=== PATIENT | female | born 1970 | race Caucasian/White ===

== ENCOUNTER 2017-12-27 17:30 | Observation (INO) | payer OTHER ==
[2017-12-27] MEDS ORDERED: levETIRAcetam IV 1,000 MG in SALINE 1 100ML.BAG IVPB STA (18:10)
[2017-12-27] MEDS ORDERED: SODIUM CHLORIDE 0.9% 1,000 ML IV STA ×2 (18:10)
[2017-12-27] MEDS ORDERED: KETOROLAC 30 MG/ML 1 ML VIAL IVP STA (18:11)
[2017-12-27 18:56] LABS: Basophils % (A) 0 %; Eosinophils # (A) 0.1 k/uL (0-0.7); Eosinophils % (A) 2 %; HCT 38.6 % (34.0-46.0); HGB 12.6 gm/dL (11.4-16.0); Lymphocytes # (A) 2.3 k/uL (1.0-4.8); Lymphocytes % (A) 36 %; MCH 29.9 pg (25.0-35.0); MCHC 32.8 g/dL (31.0-37.0); MCV 91.2 fL (80.0-100.0); Mean Platelet Volume 9.6; Monocytes # (A) 0.3 k/uL (0-1.0); Monocytes % (A) 5 %; Neutrophils # (A) 3.6 k/uL (1.3-7.7); Neutrophils % (A) 55 %; Platelet Count 208 k/uL (150-450); RBC 4.23 m/uL (3.80-5.40); RDW 14.2 % (11.5-15.5); WBC 6.5 k/uL (3.8-10.6)
[2017-12-27 19:04] LABS: ALT 17 U/L (9-52); AST 23 U/L (14-36); Albumin 3.7 g/dL (3.5-5.0); Alkaline Phosphatase 61 U/L (38-126); Anion Gap 11 mmol/L; Blood Urea Nitrogen 9 mg/dL (7-17); Carbon Dioxide 22 mmol/L (22-30); Chloride 109 mmol/L (98-107); Creatine Kinase 56 U/L (30-135); Glucose 75 mg/dL (74-99); Sodium 142 mmol/L (137-145); Total Bilirubin 0.5 mg/dL (0.2-1.3); Total Protein 6.4 g/dL (6.3-8.2)
--- NOTE | 2017-12-27 19:23 | CT ---
EXAMINATION TYPE: CT brain wo con DATE OF EXAM: 12/27/2017 COMPARISON: NONE HISTORY: Seizure. CT DLP: 873.2 mGycm. Automated Exposure Control for Dose Reduction was Utilized. TECHNIQUE: CT scan of the head is performed without contrast. FINDINGS: Ventricles have normal size. There is no mass effect nor midline shift. There is no sign of intracranial hemorrhage. The calvarium is intact. CONCLUSION: Negative CT scan of the brain.
--- NOTE | 2017-12-27 19:50 | ED ---
Seizure HPI - General Chief Complaint: Seizure Stated Complaint: Seizure Time Seen by Provider: 12/27/17 17:42 Source: patient Mode of arrival: EMS Limitations: no limitations - History of Present Illness Initial Comments: This 47-year-old white female presents with a complaint of seizures. She states that she has had multiple seizures today. She is unsure exactly how much. A family member is present and states that she has had approximately 6 seizures. They're short-lived without exact known duration. Her body apparently stiffens up and she is unconscious during these. She does have a history of seizures for the last 12 or so years. She currently is on antiseizure medications and follows up with a neurologist out of [place]. She states that she has an adrenal mass and apparently is on some type of prostaglandin medication which is new for her and she states that her seizures have been worse recently. She complains of a diffuse body type pain from the stiffening up of her muscles. She does present via EMS and they gave her 10 mg of Versed IM prior to arrival with cessation of her seizures. She states that these didn't seem to make her feel more calm but she is still complaining of pain. No recent fevers or chills. No chest pain or shortness of breath. No other complaints or modifying factors. - Related Data Home Medications Medication Instructions Recorded Confirmed Acetaminophen [Tylenol Extra 500 mg PO BID PRN 12/27/17 12/27/17 Strength] Albuterol Inhaler [Ventolin Hfa 2 puff INHALATION RT-Q6H PRN 12/27/17 12/27/17 Inhaler] Cabergoline 0.5mg 0.5 mg PO Q72H 12/27/17 12/27/17 Cetirizine HCl [Zyrtec] 10 mg PO DAILY 12/27/17 12/27/17 Diazepam 10 mg PO QID 12/27/17 12/27/17 Fluticasone Nasal [place] [Flonase 1 spray EA NOSTRIL DAILY 12/27/17 12/27/17 Nasal [place]] Furosemide [Lasix] 20 mg PO DAILY PRN 12/27/17 12/27/17 Loperamide HCl [Loperamide] 2 mg PO DAILY PRN 12/27/17 12/27/17 Melatonin 3 mg PO HS PRN 12/27/17 12/27/17 Metoclopramide HCl [Reglan] 10 mg PO QID PRN 12/27/17 12/27/17 QUEtiapine FUMARATE 100 - 200 mg PO HS 12/27/17 12/27/17 diphenhydrAMINE HCL [Benadryl] 25 mg PO HS PRN 12/27/17 12/27/17 levETIRAcetam [Keppra] 1,000 mg PO BID 12/27/17 12/27/17 metFORMIN HCL [Glucophage] 500 mg PO TID 12/27/17 12/27/17 Allergies Allergy/AdvReac Type Severity Reaction Status Date / Time bee venom protein (honey bee) Allergy Anaphylaxis Verified 12/27/17 18:06 erythromycin base Allergy Anaphylaxis Verified 12/27/17 18:06 Latex, Natural Rubber Allergy Rash/Hives Verified 12/27/17 18:06 Review of Systems ROS Statement: Those systems with pertinent positive or pertinent negative responses have been documented in the HPI. ROS Other: All systems not noted in ROS Statement are negative. Past Medical History Past Medical History: Asthma, Seizure Disorder Additional Past Medical History / Comment(s): pituitary tumor History of Any Multi-Drug Resistant Organisms: None Reported Past Surgical History: Section Additional Past Surgical History / Comment(s): multiple abd surgeries Past Psychological History: Bipolar Smoking Status: Current every day smoker Past Alcohol Use History: Occasional Past Drug Use History: None Reported General Exam - General Exam Comments Initial Comments: GENERAL: The patient is well nourished and well hydrated. VITAL SIGNS: Heart rate, blood pressure, respiratory rate reviewed as recorded in nurse's notes. EYES: Pupils are round and reactive. Extraocular movements are intact. No conjunctival / lid redness or swelling. ENT: No external evidence of injury, swelling, or ecchymosis. Airway is patent. Throat is clear. Patient has 3 different colors of hair. NECK: Nontender. No swelling or evidence of injury. No subcutaneous emphysema. Trachea is midline. No thyroid mass. HEART: Regular rate and rhythm. Good peripheral pulses. LUNGS/CHEST: Breath sounds clear and equal bilaterally. No rales, rhonchi, or wheezes. No ecchymosis, subcutaneous emphysema, or tenderness. ABDOMEN: Abdomen soft without tenderness. No palpable masses or organomegaly. No peritoneal signs. No abdominal wall swelling or ecchymosis. EXTREMITIES: There is mild diffuse tenderness throughout extremities. Normal muscle tone and function. No thoracolumbar tenderness. NEUROLOGIC: Sensation is grossly intact. Cranial nerve exam reveals face is symmetrical, tongue is midline, speech is clear. SKIN: No abrasions or ecchymosis is noted. No induration or masses noted. PSYCHIATRIC: Alert and oriented. Appropriate behavior and judgment. Limitations: no limitations Course Vital Signs 12/27/17 17:51 Temperature 96.8 F L Pulse Rate 77 Respiratory 18 Rate Blood Pressure 120/89 O2 Sat by Pulse 100 Oximetry Medical Decision Making - Medical Decision Making The patient was seen and examined. All diagnostics were reviewed. The computed tomography scan of the brain did not show any acute processes. The patient also had a laboratory analysis which essentially all came back within normal limits. The urinalysis is pending. She did receive some Toradol intravenously for pain. The laboratory did not show any acute gross abnormalities. The computed tomography scan of the brain was normal. It appears as though the patient has had multiple seizures this requiring admission to the hospital. The case is discussed with internal medicine and they're agreeable to admission as well. - Lab Data Result diagrams: 12/27/17 18:45 12/27/17 18:45 Lab Results 12/27/17 12/27/17 Range/Units 18:45 18:45 WBC 6.5 (3.8-10.6) k/uL RBC 4.23 (3.80-5.40) m/uL Hgb 12.6 (11.4-16.0) gm/dL Hct 38.6 (34.0-46.0) % MCV 91.2 (80.0-100.0) fL MCH 29.9 (25.0-35.0) pg MCHC 32.8 (31.0-37.0) g/dL RDW 14.2 (11.5-15.5) % Plt Count 208 (150-450) k/uL Neutrophils % 55 % Lymphocytes % 36 % Monocytes % 5 % Eosinophils % 2 % Basophils % 0 % Neutrophils # 3.6 (1.3-7.7) k/uL Lymphocytes # 2.3 (1.0-4.8) k/uL Monocytes # 0.3 (0-1.0) k/uL Eosinophils # 0.1 (0-0.7) k/uL Basophils # 0.0 (0-0.2) k/uL Sodium 142 (137-145) mmol/L Potassium 4.0 (3.5-5.1) mmol/L Chloride 109 H (98-107) mmol/L Carbon Dioxide 22 (22-30) mmol/L Anion Gap 11 mmol/L BUN 9 (7-17) mg/dL Creatinine 0.66 (0.52-1.04) mg/dL Est GFR (CKD-EPI)AfAm >90 (>60 ml/min/1.73 sqM) Est GFR (CKD-EPI)NonAf >90 (>60 ml/min/1.73 sqM) Glucose 75 (74-99) mg/dL Calcium 9.0 (8.4-10.2) mg/dL Total Bilirubin 0.5 (0.2-1.3) mg/dL AST 23 (14-36) U/L ALT 17 (9-52) U/L Alkaline Phosphatase 61 (38-126) U/L Creatine Kinase 56 (30-135) U/L Total Protein 6.4 (6.3-8.2) g/dL Albumin 3.7 (3.5-5.0) g/dL Disposition Clinical Impression: Recurrent seizures, Myalgia, Pituitary tumor, Cephalgia Disposition: ADMITTED IP TO THIS [facility] Condition: Fair Time of Disposition: 21:30 Decision Date: 12/27/17 Decision Time: 21:30
[2017-12-27] MEDS ORDERED: ONDANSETRON 4 MG/2 ML VIAL IVP PRN (21:31)
[2017-12-27] MEDS ORDERED: NALOXONE 0.4 MG/ML 1 ML VIAL IV PRN (21:31)
[2017-12-27] MEDS ORDERED: ALBUTEROL NEBULIZED 2.5 MG/3 ML INHALATION PRN (21:34)
[2017-12-27] MEDS ORDERED: LOPERAMIDE 2 MG CAP PO PRN (21:34)
[2017-12-27] MEDS ORDERED: MELATONIN 3 MG TABLET PO PRN (21:34)
[2017-12-27] MEDS ORDERED: ACETAMINOPHEN TAB 500 MG TAB PO PRN (21:34)
[2017-12-27] MEDS ORDERED: diphenhydrAMINE 25 MG CAP PO PRN (21:34)
[2017-12-27] MEDS ORDERED: FUROSEMIDE 20 MG TAB PO PRN (21:34)
[2017-12-27] MEDS ORDERED: LORazepam 2 MG/ML INJ IV PRN (22:25)
--- NOTE | 2017-12-27 22:39 | P.HPIM ---
History of Present Illness 47-year-old female with history of epilepsy, recent diagnosis of pituitary microadenoma with hyperprolactinemia. Patient presented to the hospital with status epilepticus. She described having 6 attacks at least of seizures back to back with loss of consciousness. Described attack as stiffness of her whole body. Denies any tongue biting or loss of bowel or bladder control. The attacks were witnessed by family member who described the event. Patient reports that her seizures has not been under very good control and she usually has breakthrough seizures couple times a month but since the diagnosis pituitary microadenoma few months ago and starting on Cabergoline, her seizures got way out of control. Denies any associated headaches nausea or vomiting at this time. But does report some blurry vision which has been going on for a few months since the diagnosis of the pituitary microadenoma. She reports no recent changes in her antiepileptic drugs. Her neurologist is based [place] and she has some workup done at [facility] including an MRI of the brain So patient family end up calling EMS who gave her 10 mg of Versed and Route, in the ED patient had computed tomography scan of the head which was negative, was loaded with Keppra and admitted for further care. Review of Systems Constitutional: Patient denies fever, denies chills, denies night sweating, denies significant weight changes Eyes: Patient reports chronic blurred vision, denies eye pain ENT: Patient denies ear pain, denies rhinorrhea, denies sore throat Cardiovascular: Patient denies chest pain, denies exertional dyspnea, denies peripheral leg edema, denies orthopnea, denies paroxysmal nocturnal dyspnea Respiratory:Patient denies cough, denies wheezing, denies shortness of breath Gastrointestinal: Patient denies diarrhea, denies constipation, denies nausea , denies vomiting, denies abdominal pain Genitourinary: Patient denies dysuria, denies hematuria, denies changes in urinary habits, denies genital lesions Musculoskeletal: Patient denies muscle pain, reports left knee pain Psychiatric: Patient denies changes in mood or memory, denies suicidal ideation, reports anxiety Endocrine: Patient denies heat intolerance, denies cold intolerance, denies excessive thirst, denies polyuria Neurological: Patient denies focal neurologic deficits, denies weakness, denies numbness, denies tingling Hem/Lymphatic: Patient denies bleeding tendency, denies bruising, denies swollen lymph glands Allergic/Immun: Patient denies recent allergic reactions Skin: Patient denies rashes, denies pruritis, denies ulcers Past Medical History Past Medical History: Asthma, Seizure Disorder Additional Past Medical History / Comment(s): pituitary tumor History of Any Multi-Drug Resistant Organisms: None Reported Past Surgical History: Section Additional Past Surgical History / Comment(s): multiple abd surgeries Past Psychological History: Bipolar Smoking Status: Current every day smoker Past Alcohol Use History: Occasional Past Drug Use History: None Reported - Past Family History Father Family Medical History: Cancer Additional Family Medical History / Comment(s): thyroid, Mother Family Medical History: Congestive Heart Failure (CHF), Diabetes Mellitus Additional Family Medical History / Comment(s): epilepsy Medications and Allergies Home Medications and Allergies Comment(s): Reviewed Home Medications Medication Instructions Recorded Confirmed Type Acetaminophen [Tylenol Extra 500 mg PO BID PRN 12/27/17 12/27/17 History Strength] Albuterol Inhaler [Ventolin Hfa 2 puff INHALATION RT-Q6H PRN 12/27/17 12/27/17 History Inhaler] Cabergoline 0.5mg 0.5 mg PO Q72H 12/27/17 12/27/17 History Cetirizine HCl [Zyrtec] 10 mg PO DAILY 12/27/17 12/27/17 History Diazepam 10 mg PO QID 12/27/17 12/27/17 History Fluticasone Nasal [place] [Flonase 1 spray EA NOSTRIL DAILY 12/27/17 12/27/17 History Nasal [place]] Furosemide [Lasix] 20 mg PO DAILY PRN 12/27/17 12/27/17 History Loperamide HCl [Loperamide] 2 mg PO DAILY PRN 12/27/17 12/27/17 History Melatonin 3 mg PO HS PRN 12/27/17 12/27/17 History Metoclopramide HCl [Reglan] 10 mg PO QID PRN 12/27/17 12/27/17 History QUEtiapine FUMARATE 100 - 200 mg PO HS 12/27/17 12/27/17 History diphenhydrAMINE HCL [Benadryl] 25 mg PO HS PRN 12/27/17 12/27/17 History levETIRAcetam [Keppra] 1,000 mg PO BID 12/27/17 12/27/17 History metFORMIN HCL [Glucophage] 500 mg PO TID 12/27/17 12/27/17 History Allergies Allergy/AdvReac Type Severity Reaction Status Date / Time bee venom protein (honey bee) Allergy Anaphylaxis Verified 12/27/17 18:06 erythromycin base Allergy Anaphylaxis Verified 12/27/17 18:06 Latex, Natural Rubber Allergy Rash/Hives Verified 12/27/17 18:06 Physical Exam Vitals: Vital Signs Temp Pulse Resp BP Pulse Ox 12/27/17 22:15 97.3 F L 66 18 104/65 99 12/27/17 21:45 64 98/69 100 12/27/17 20:45 62 108/69 100 12/27/17 19:45 84 93/51 99 12/27/17 18:45 64 94/65 100 12/27/17 17:51 96.8 F L 77 18 120/89 100 Intake and Output 12/27/17 12/27/17 12/27/17 06:59 14:59 22:59 Other: Weight 74.843 kg Constitutional: No acute distress, conversant, pleasant Eyes: Anicteric sclerae, moist conjunctiva, no lid-lag Pupils equal round reactive to light ENMT: NC/AT Oropharynx clear, no erythema, exudates Neck: Supple, FROM, no masses, or JVD No carotid bruits No thyromegaly Lungs: Clear to auscultation Clear to percussion Normal respiratory effort, no accessory muscle use Cardiovascular: Heart regular in rate and rhythm, No murmurs, gallops, or rubs No peripheral edema Abdominal: Soft Nontender, no guarding, rebound or rigidity Abdomen moving with respiration Normoactive bowel sounds No hepatomegaly, No splenomegaly No palpable mass No abdominal wall hernia noted Skin: Normal temperature, tone, texture, turgor No induration No subcutaneous nodules No rash, lesions No ulcers Extremities: No digital cyanosis No clubbing Pedal pulses intact and symmetrical Radial pulses intact and symmetrical No calf tenderness Patient reports some pain in her left knee, no tenderness to palpation , there is slight swelling of the left knee compared to the right, no skin changes, there is limitation in range of motion of the left knee with limited flexion due to pain Psychiatric: Alert and oriented to person, place and time Appropriate affect fair judgment Neuro Muscles Strength 5/5 in all extremities Sensation to light touch grossly present throughout Cranial nerves II-XII grossly intact No focal sensory deficits Lymphatics: no palpable cervical or supraclavicular , or inguinal lymph nodes Results CBC & Chem 7: 12/27/17 18:45 12/27/17 18:45 Labs: Abnormal Lab Results - Last 24 Hours (Table) 12/27/17 Range/Units 18:45 Chloride 109 H (98-107) mmol/L Assessment and Plan Assessment: 47-year-old female with history of epilepsy and recent diagnosis of pituitary microadenoma with hyperprolactinemia. She presented to the hospital due to status epilepticus where she had 6 attacks of seizures associated with loss of consciousness back to back. EMS was called she received 10 mg of Versed and was brought to the hospital for further care. She denies any recent changes in her antiepileptic drugs and claims to be compliant with her medications Plan: #Status epilepticus with breakthrough seizures #History of epilepsy #Pituitary microadenoma with hyperprolactinemia #Smoking Patient counseled to quit smoking dictated replacement therapy offered #DVT prophylaxis Heparin subcu 3 times a day Patient was loaded with Keppra in the ED Cannot check Keppra level at this point Check EEG Neurology consult Obtain records from [facility] to assess for brain MRI due to recent history of pituitary microadenoma with hyperprolactinemia Check prolactin level Check morning labs Neurology consultation Check TSH, check prolactin level Surrogate decision-maker: Patient's father Gerald Kingsley CODE STATUS: Full code DVT prophylaxis: *Heparin subcu Discussed with: Patient, ER, RN Anticipated discharge: 48-[address]: Home A total of 55 minutes were spent on the care of this complex patient more than 50% of the time was spent in counseling and care coordination.
[2017-12-27] MEDS: METOCLOPRAMIDE 5 MG/ML 2 ML VIAL IVP PRN (22:47)
[2017-12-27] MEDS: DIAZEPAM 5 MG TAB PO SCH (22:54)
[2017-12-27] MEDS: HYDROcodone/APAP 5-325MG 1 EACH TAB PO PRN (23:02)
[2017-12-27 23:26] LABS: Glucose,Whole Blood 99 mg/dL (75-99)
[2017-12-27 23:37] VITALS: BMI 25.8
[2017-12-28] MEDS: metFORMIN 500 MG TAB PO SCH ×4 (00:10→17:14)
[2017-12-28 00:22] LABS: Appearance,Urine Clear (Clear); Bilirubin,Urine Negative (Negative); Blood,Urine Negative (Negative); Color,Urine Yellow; Glucose,Urine (UA) Negative (Negative); Ketones,Urine 2+ (Negative); Leukocyte Esterase,Urine Negative (Negative); Nitrite,Urine Negative (Negative); PH, Urine 7.5 (5.0-8.0); Protein,Urine Negative (Negative); Specific Gravity,Urine 1.012 (1.001-1.035)
[2017-12-28 00:34] LABS: Amphetamine Screen,Urine Not Detected (NotDetected); Barbiturate Screen,Urine Not Detected (NotDetected); Benzodiazepines Screen,Urine Detected (NotDetected); Cocaine Screen,Urine Not Detected (NotDetected); Methadone Screen, Urine Not Detected (NotDetected); Opiate Screen,Urine Not Detected (NotDetected); Oxycodone Screen, Urine Not Detected (NotDetected); Phencyclidine Screen,Urine Not Detected (NotDetected); Tricyclic Antidepressant,Urine Detected (NotDetected); Urn Cannabinoid Scrn Not Detected (NotDetected)
[2017-12-28] MEDS: HYDROcodone/APAP 5-325MG 1 EACH TAB PO PRN ×5 (03:53→21:36)
[2017-12-28] MEDS: levETIRAcetam 500 MG TAB PO SCH ×2 (08:32→20:29)
[2017-12-28] MEDS: DIAZEPAM 5 MG TAB PO SCH ×4 (08:32→21:36)
[2017-12-28] MEDS: LORATADINE 10 MG TAB PO SCH (08:37)
[2017-12-28] MEDS: FLUTICASONE 50MCG/SPRAY NASAL 16GM EA NOSTRIL SCH (08:37)
[2017-12-28 08:59] LABS: Basophils % (A) 1 %; Eosinophils # (A) 0.1 k/uL (0-0.7); Eosinophils % (A) 1 %; HCT 37.8 % (34.0-46.0); HGB 12.6 gm/dL (11.4-16.0); Lymphocytes # (A) 1.8 k/uL (1.0-4.8); Lymphocytes % (A) 41 %; MCH 30.3 pg (25.0-35.0); MCHC 33.3 g/dL (31.0-37.0); MCV 90.8 fL (80.0-100.0); Mean Platelet Volume 11.4; Monocytes # (A) 0.3 k/uL (0-1.0); Monocytes % (A) 7 %; Neutrophils # (A) 2.1 k/uL (1.3-7.7); Neutrophils % (A) 48 %; Platelet Count 174 k/uL (150-450); RBC 4.16 m/uL (3.80-5.40); WBC 4.4 k/uL (3.8-10.6)
[2017-12-28] MEDS ORDERED: PANTOPRAZOLE 40 MG/10 ML VIAL IV SCH (09:00)
[2017-12-28] MEDS ORDERED: levETIRAcetam IV 1,000 MG in SALINE 1 100ML.BAG IVPB SCH (09:00)
[2017-12-28] MEDS: ENOXAPARIN 40 MG/0.4 ML SYRINGE SQ SCH (09:20)
[2017-12-28 10:25] LABS: ALT 16 U/L (9-52); AST 20 U/L (14-36); Albumin 3.1 g/dL (3.5-5.0); Alkaline Phosphatase 46 U/L (38-126); Anion Gap 11 mmol/L; Blood Urea Nitrogen 9 mg/dL (7-17); Calcium 8.3 mg/dL (8.4-10.2); Carbon Dioxide 19 mmol/L (22-30); Chloride 112 mmol/L (98-107); Glucose 73 mg/dL (74-99); Potassium 4.2 mmol/L (3.5-5.1); Sodium 142 mmol/L (137-145); Total Bilirubin 0.5 mg/dL (0.2-1.3); Total Protein 5.6 g/dL (6.3-8.2)
--- NOTE | 2017-12-28 11:19 | P.PN ---
Subjective Progress Note Date: 12/28/17 Principal diagnosis: Seizures Patient hasn't had any more seizures since admission. No focal weakness or numbness. She was having headaches. Objective - Vital Signs Vital signs: Vital Signs Temp 96.9 F L 12/28/17 07:28 Pulse 70 12/28/17 09:03 Resp 18 12/28/17 09:03 BP 97/61 12/28/17 07:28 Pulse Ox 100 12/28/17 07:28 Intake & Output 12/27/17 12/28/17 12/28/17 18:59 06:59 18:59 Intake Total 700 Balance 700 Weight 74.843 kg 74.843 kg Intake: Intake, IV Titration 700 Amount Sodium Chloride 0.9% 1, 700 000 ml @ 100 mls/hr IV . Q10H STA Rx#:[id number] Other: Voiding Method Toilet Toilet # Voids 1 - Exam Constitutional: No acute distress, conversant, pleasant Eyes:Anicteric sclerae, moist conjunctiva, no lid-lag, PERRLA, ENMT: Oropharynx clear, no erythema, exudates Neck: Supple, FROM, no masses, or JVD, No carotid bruits, No thyromegaly Lungs: Clear to auscultation, Clear to percussion, Normal respiratory effort, no accessory muscle use Cardiovascular: Heart regular in rate and rhythm, No murmurs, gallops, or rubs, No peripheral edema Abdominal: Soft, Nontender, no guarding, rebound or rigidity, Normoactive bowel sounds, No hepatomegaly, No splenomegaly, No palpable mass Skin: Normal temperature, tone, texture, turgor, no induration, No subcutaneous nodules, No rash, lesions, No ulcers Extremities: No digital cyanosis, No clubbing, Pedal pulses intact and symmetrical, Radial pulses intact and symmetrical, No calf tenderness Psychiatric: Alert and oriented to person, place and time, appropriate affect, intact judgement Neuro: Muscles Strength 5/5 in all 4 extremities, Sensation to light touch grossly present throughout, Cranial nerves II-XII grossly intact, no focal sensory deficits - Labs CBC & Chem 7: 12/28/17 07:32 12/28/17 09:29 Labs: Abnormal Lab Results - Last 24 Hours (Table) 03/26/18 03/27/18 03/27/18 Range/Units 18:45 00:15 09:29 Chloride 109 H 112 H (98-107) mmol/L Carbon Dioxide 19 L (22-30) mmol/L Glucose 73 L (74-99) mg/dL Calcium 8.3 L (8.4-10.2) mg/dL Total Protein 5.6 L (6.3-8.2) g/dL Albumin 3.1 L (3.5-5.0) g/dL Urine Ketones 2+ H (Negative) U Tricyclic Antidepress Detected H (NotDetected) U Benzodiazepines Scrn Detected H (NotDetected) Assessment and Plan Plan: # Status epilepticus/History of epilepsy: -Continue keppra -EEG -Neuro consult -In process of obtaining records. -Labs reviewed. # Pituitary microadenoma with hyperprolactinemia Prolactin level pending Awaiting records from outside hospital. #Smoking Counseled to quit #DVT prophylaxis Heparin subcu 3 times a day
--- NOTE | 2017-12-28 16:31 | XR ---
EXAMINATION TYPE: XR knee limited LT DATE OF EXAM: 12/28/2017 CLINICAL HISTORY: pain TECHNIQUE: Two views of the left knee are obtained. COMPARISON: None. FINDINGS: There is no acute fracture/dislocation. The tri-compartment joint spaces appear within no rmal limits. The overlying soft tissue appears unremarkable. IMPRESSION: There is no acute fracture or dislocation ICD 10 NO FRACTURE, INITIAL EVALUATION
--- NOTE | 2017-12-28 18:07 | P.CNNES ---
History of Present Illness Consult date: 12/28/17 Reason for Consult: Patient admitted with seizure disorder and microadenoma. History of Present Illness: This patient is a 47-year-old right-handed white female with a known history of underlying epilepsy. Patient states she was recently seen by her neurologist in the [facility] [place], [place] and was being evaluated for recent seizure events. Patient has been treated for seizure disorder dating back several years. She states she underwent evaluation about 10 years ago with the [facility] and was diagnosed with epileptic and nonepileptic seizures. She has been on various anticonvulsants over the years but most recently was taking levetiracetam. Patient states she was recently diagnosed as having a pituitary microadenoma which was detected on MRI of the brain. She was started on specific treatment for the microadenoma which was producing hyperprolactinemia. Currently she was started on Cabergoline for specific treatment. Patient states her regular neurologist this based out of [facility] in the [facility], [place]. She states this is where she has been treated for seizures over the years. She had several breakthrough seizures and was brought into the emergency room where she was further evaluated. She was loaded with IV Keppra as she had multiple seizures at home. She mentioned she also has a history of bipolar disorder and is currently on Seroquel for treatment. She follows with a psychiatrist in the outpatient setting as well. Patient did undergo a Keppra level in the emergency room the results of which are still pending. She was treated for her seizures initially on site and was given 10 mg of Versed. When she was in the ER she was loaded with the IV Keppra. She is currently on 1000 mg by mouth twice a day. Apparently at home she was taking 500 mg in the morning and at thousand at night. We have recommended a repeat Keppra level to be done for her tomorrow. Patient is now resting very comfortably. She has had no further seizures since admission. She underwent a routine EEG today which was reviewed and is normal for age with no evidence of any epileptiform discharges. As mentioned the patient does have underlying history of pseudoseizures as well. It is unclear due to the frequency of her recent seizures whether some of these may be related to her history of pseudoseizures. She did undergo a computed tomography scan of the brain yesterday which was reported negative for any acute changes. Patient denies any focal weakness or headaches at this time. She is interested in being discharged but we would like to obtain her Keppra level prior to discharge. She should follow-up with her regular neurologist for further management of her underlying history of epilepsy. A prolactin blood level has been drawn and is pending at this time. Patient is advised of the [place] driving only states she should not be driving for. To 6 months following her last seizure event. She is aware of this restriction due to her long history of epilepsy. Neurology is now been consulted for further evaluation and recommendations. Review of Systems Constitutional: Denies chills, Denies fever Eyes: denies blurred vision, denies pain Ears, nose, mouth and throat: Denies headache, Denies sore throat Cardiovascular: Denies chest pain, Denies shortness of breath Respiratory: Denies cough Gastrointestinal: Denies abdominal pain, Denies diarrhea, Denies nausea, Denies vomiting Genitourinary: Denies dysuria, Denies hematuria Musculoskeletal: Denies myalgias Integumentary: Denies pruritus, Denies rash Neurological: Reports confusion, Reports convulsions, Reports headaches, Reports seizures, Reports syncope Psychiatric: Denies anxiety, Denies depression Endocrine: Denies fatigue, Denies weight change Past Medical History Past Medical History: Asthma, Seizure Disorder Additional Past Medical History / Comment(s): pituitary tumor History of Any Multi-Drug Resistant Organisms: None Reported Date of last positivie culture/infection: 2002 MDRO Source:: abdomen Past Surgical History: Section Additional Past Surgical History / Comment(s): multiple abd surgeries Past Anesthesia/Blood Transfusion Reactions: No Reported Reaction Past Psychological History: Bipolar Smoking Status: Current every day smoker Past Alcohol Use History: Occasional Past Drug Use History: None Reported - Past Family History Father Family Medical History: Cancer Additional Family Medical History / Comment(s): thyroid, Mother Family Medical History: Congestive Heart Failure (CHF), Diabetes Mellitus Additional Family Medical History / Comment(s): epilepsy Medications and Allergies Home Medications Medication Instructions Recorded Confirmed Type Acetaminophen [Tylenol Extra 500 mg PO BID PRN 12/27/17 12/27/17 History Strength] Albuterol Inhaler [Ventolin Hfa 2 puff INHALATION RT-Q6H PRN 12/27/17 12/27/17 History Inhaler] Cabergoline 0.5mg 0.5 mg PO Q72H 12/27/17 12/27/17 History Cetirizine HCl [Zyrtec] 10 mg PO DAILY 12/27/17 12/27/17 History Diazepam 10 mg PO QID 12/27/17 12/27/17 History Fluticasone Nasal [place] [Flonase 1 spray EA NOSTRIL DAILY 12/27/17 12/27/17 History Nasal [place]] Furosemide [Lasix] 20 mg PO DAILY PRN 12/27/17 12/27/17 History Loperamide HCl [Loperamide] 2 mg PO DAILY PRN 12/27/17 12/27/17 History Melatonin 3 mg PO HS PRN 12/27/17 12/27/17 History Metoclopramide HCl [Reglan] 10 mg PO QID PRN 12/27/17 12/27/17 History QUEtiapine FUMARATE 100 - 200 mg PO HS 12/27/17 12/27/17 History diphenhydrAMINE HCL [Benadryl] 25 mg PO HS PRN 12/27/17 12/27/17 History levETIRAcetam [Keppra] 1,000 mg PO BID 12/27/17 12/27/17 History metFORMIN HCL [Glucophage] 500 mg PO TID 12/27/17 12/27/17 History Allergies Allergy/AdvReac Type Severity Reaction Status Date / Time bee venom protein (honey bee) Allergy Anaphylaxis Verified 12/27/17 18:06 erythromycin base Allergy Anaphylaxis Verified 12/27/17 18:06 Latex, Natural Rubber Allergy Rash/Hives Verified 12/27/17 18:06 Physical Examination - Vital Signs Vital Signs: Vital Signs Temp Pulse Pulse Resp BP BP BP 12/28/17 14:51 98.9 F 65 18 89/59 12/28/17 09:03 70 18 12/28/17 07:28 96.9 F L 62 18 97/61 12/28/17 07:00 96.9 F L 57 L 18 91/61 12/27/17 23:20 97.6 F 62 16 101/57 12/27/17 22:15 97.3 F L 66 18 104/65 12/27/17 21:45 64 98/69 12/27/17 20:45 62 108/69 12/27/17 19:45 84 93/51 12/27/17 18:45 64 94/65 03/26/18 17:51 96.8 F L 77 18 120/89 Pulse Ox 12/28/17 14:51 98 12/28/17 09:03 12/28/17 07:28 100 12/28/17 07:00 97 12/27/17 23:20 96 12/27/17 22:15 99 12/27/17 21:45 100 12/27/17 20:45 100 12/27/17 19:45 99 12/27/17 18:45 100 12/27/17 17:51 100 Intake and Output 12/28/17 12/28/17 12/28/17 06:59 14:59 22:59 Intake Total 700 160 Balance 700 160 Intake: IV 160 Sodium Chloride 0.9% 1, 160 000 ml @ 100 mls/hr IV . Q10H STA Rx#:[id number] Intake, IV Titration 700 Amount Sodium Chloride 0.9% 1, 700 000 ml @ 100 mls/hr IV . Q10H STA Rx#:[id number] Other: Voiding Method Toilet Toilet Toilet # Voids 1 2 Weight 74.843 kg - Constitutional General appearance: average body habitus, cooperative - EENT EENT: PERRL, mucous membranes moist - Respiratory Respiratory: lungs clear, normal breath sounds - Cardiovascular Cardiovascular: regular rate, normal S1, normal S2 Extremities: no peripheral edema bilaterally - Gastrointestinal Gastrointestinal: normoactive bowel sounds - Integumentary Integumentary: normal - Neurologic Cranial nerve examination: PERRL, EOMI, VFF, V1/V2/V3 grossly intact, face symmetric, tongue midline, intact gag reflex, intact corneal reflex, normal palatal elevation Speech examination: intact Sensorimotor examination: intact Motor examination - right side: 4/5: biceps, triceps, wrist flexion, wrist extension, 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, hip flexors, knee extensors, dorsiflexion, toe extension (EHL) , plantarflexion Motor examination - left side: 4/5: biceps, triceps, wrist flexion, wrist extension, 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, hip flexors, knee extensors, dorsiflexion, toe extension (EHL) , plantarflexion Detailed sensory examination: intact Reflex and gait examination: intact Reflexes: 1+: ankle, bicep, knee, tricep - Musculoskeletal Musculoskeletal: no pain - Psychiatric Psychiatric: mood/affect appropriate, cooperative Results - Laboratory Findings CBC and BMP: 12/28/17 07:32 12/28/17 09:29 Abnormal Lab Findings: Abnormal Labs 12/27/17 12/28/17 12/28/17 18:45 00:15 09:29 Chloride 109 H 112 H Carbon Dioxide 19 L Glucose 73 L Calcium 8.3 L Total Protein 5.6 L Albumin 3.1 L Urine Ketones 2+ H U Tricyclic Antidepress Detected H U Benzodiazepines Scrn Detected H Assessment and Plan (1) Complex partial epilepsy Current Visit: Yes Status: Acute Code(s): G40.209 - LOCAL-REL SYMPTC EPI W CMPLX PRT SEIZ,NOT NTRCT,W/O STAT EPI SNOMED Code(s): 574544919 (2) Pseudoseizure Current Visit: Yes Status: Acute Code(s): F44.5 - CONVERSION DISORDER WITH SEIZURES OR CONVULSIONS SNOMED Code(s): 250095189 (3) Cephalgia Current Visit: Yes Status: Acute Code(s): R51 - HEADACHE SNOMED Code(s): 88036833 (4) Pituitary tumor Current Visit: Yes Status: Acute Code(s): D49.7 - NEOPLM OF UNSP BEHAV OF ENDO GLANDS AND OTH PRT NERVOUS SYS SNOMED Code(s): 697104427 Plan: This patient is a 47-year-old female with a history of underlying epilepsy and seizure disorder dating back over 10 years. She has been evaluated at the [facility] in the epilepsy monitoring unit. This was several years ago and was diagnosed as having epileptic and nonepileptic seizures. Apparently she was brought into hospital with multiple breakthrough seizures. She was loaded in the emergency room with IV Keppra. Her Keppra blood level is pending today. She also recently underwent MRI of the brain which revealed her to have a pituitary microadenoma. She was started on specific treatment for this condition and is being followed by several specialists in the [place]. The patient underwent routine EEG today which was reviewed and is normal for her age with no epileptic seizure focus. We reviewed the results of the EEG today with the patient. We are recommending that she be maintained on current dose of Keppra thousand milligrams by mouth twice a day. She may follow-up with her regular neurologist soon after discharge. She is aware the [place] driving law who states she cannot drive for. To 6 months following her last seizure. Her overall prognosis at this time remains guarded. We will continue to monitor for any further symptoms of breakthrough seizures. We did discuss the results of her computed tomography scan of the brain as well as her EEG results today with her in detail. She is aware of the normal findings. She should follow-up with her psychiatrist soon after discharge as well for further management of her known history of bipolar disorder. Her overall prognosis at this time remains guarded. Time with Patient: Greater than 30
--- NOTE | 2017-12-28 19:40 | EEG ---
ELECTROENCEPHALOGRAM REPORT DATE OF EE12/28/2017 ELECTROENCEPHALOGRAPHIC EXAMINATION REPORT: INDICATION FOR EXAMINATION: This patient is a 47-year-old female with history of seizure disorder and microadenoma. Patient admitted with multiple breakthrough seizures. Patient does have history of bipolar disorder and pseudoseizures in the past. AGE: 47. EEG FINDINGS: A routine 21-channel awake digital EEG recording was accomplished utilizing the 10-20 international system with bipolar and referential montages. The background activity in the most alert resting state consists of a low amplitude, fairly well developed and well sustained 7-8 Hz activity over the posterior head region. This posterior rhythm attenuates to eye opening. There is a small amount of low amplitude 18-20 Hz beta activity seen maximally over the anterior head regions. Muscle and movement artifact was observed on a few occasions during the tracing. Hyperventilation was not performed. Photic stimulation at flash frequencies of 2-30 Hz produced a good symmetrical occipital driving response. No epileptiform discharges were seen. IMPRESSION: This EEG is normal for the patient's age. The EEG failed to reveal any focal, lateralized, or epileptiform abnormalities. Clinical correlation is recommended. MMODL / IJN: [id number] /
[2017-12-28] MEDS ORDERED: QUEtiapine 100 MG TAB PO SCH (21:00)
[2017-12-28] MEDS: METOCLOPRAMIDE 5 MG/ML 2 ML VIAL IVP PRN (21:44)
[2017-12-29] MEDS ORDERED: PANTOPRAZOLE 40 MG TABLET PO SCH (07:30)
[2017-12-29] MEDS: HYDROcodone/APAP 5-325MG 1 EACH TAB PO PRN (08:16)
[2017-12-29] MEDS: metFORMIN 500 MG TAB PO SCH ×3 (08:38→17:32)
[2017-12-29] MEDS: levETIRAcetam 500 MG TAB PO SCH (08:39)
[2017-12-29] MEDS: DIAZEPAM 5 MG TAB PO SCH ×3 (08:39→17:32)
[2017-12-29] MEDS: FLUTICASONE 50MCG/SPRAY NASAL 16GM EA NOSTRIL SCH (08:40)
[2017-12-29] MEDS: LORATADINE 10 MG TAB PO SCH (08:40)
[2017-12-29] MEDS: ENOXAPARIN 40 MG/0.4 ML SYRINGE SQ SCH (08:40)
[2017-12-29] MEDS ORDERED: KETOROLAC 30 MG/ML 1 ML VIAL IVP STA (11:16)
[2017-12-29] MEDS ORDERED: methylPREDNISolone SOD SUCCI 40 MG/ML 1 ML VIAL IV STA (11:16)
[2017-12-29] MEDS ORDERED: ASPIRIN-ACET-CAFF 250-250-65MG 1 EACH TAB PO PRN (11:17)
--- NOTE | 2017-12-29 11:22 | P.PN ---
Progress Note - Text Progress Note Date: 12/29/17 Hospitalist Interval Note Patient seen and examined at bedside. She complains of headache that has been there for the last week. She states it is worse after seizure and that this is typical for her. She also complains of pain in her legs due to her seizure. She states she normally gets Dilaudid at [facility]. We had a long discussion about Dilaudid is a poor choice for headache medicines as it causes worsening headaches with aware off of the medications. She states sometimes they give her Toradol and a steroid. I've told her we will try Toradol, steroid, and Excedrin. She is wishing to go home today. I told her we will discuss with Dr. Tate on that if he is okay with that she can likely be discharged afternoon if headache improved. Vital signs reviewed General: [non toxic], [no distress], [appears at stated age] Derm: [warm], [dry] Head: [atraumatic], [normocephalic], [symmetric] Eyes: [EOMI], [no lid lag], [anicteric sclera] Mouth: [no lip lesion], [mucus membranes moist] Cardiovascular: [S1S2 reg], [no murmur], [positive posterior tibial pulse bilateral], Lungs: [CTA bilateral], [no rhonchi, no rales] , [no accessory muscle use] Abdominal: [soft], [ nontender to palpation], [no guarding], [no appreciable organomegaly] Ext: [no gross muscle atrophy], [no edema], [no contractures] Neuro: [ CN II-XI grossly intact], [no focal neuro deficits] Psych: [Alert], [oriented], [appropriate affect] Assessment/Plan: Status epliepticus - continue with keppra - level pendning - EEG negative Headache - toradol - solumedrol - excedrine This is an update note for patient, see formal note or discharge summary same date. There is no charge associated with this note.
--- NOTE | 2017-12-29 14:58 | P.DS ---
Providers Date of admission: 12/27/17 21:36 Expected date of discharge: 12/29/17 Attending physician: Elham Crooks MD Consults: 12/27/17 21:33 Consult Physician Routine Consulting Provider: Rosario Wood Consult Reason/Comments: seizures Do you want consulting provider notified?: Yes Primary care physician: Physician Nonstaff - Discharge Diagnosis(es) (1) Breakthrough seizure Current Visit: Yes Status: Acute (2) Cephalgia Current Visit: Yes Status: Acute (3) Complex partial epilepsy Current Visit: Yes Status: Acute (4) Pituitary tumor Current Visit: Yes Status: Acute (5) Pseudoseizure Current Visit: Yes Status: Acute Hospital Course: Is a 47-year-old female with a past medical history of pituitary microadenoma, epileptiform a non-epileptiform seizures, asthma, and chronic headaches who presented to the ER after multiple [id number] seizures. On arrival her vital signs were within normal limits. Her laboratory analysis is essentially unremarkable. CT of the head was negative. She was loaded with Keppra and arrangements were made for admission. She was seen by neurology and had an EEG obtained which did not show any abnormalities. Review of her MRI from [facility] showed 3 mm possible adenoma. She is currently following up at [facility] for treatment of this as her neurologist there as well. During admission she did not have any recurrent seizures. She was complaining of a headache was not relieved with [place]. Keppra level was drawn but will take 3 days to come back and is pending at time of discharge. She was given a dose of Toradol, Solu-Medrol, and Excedrin for help with her headache. Her headache was improved after this treatment. Case was discussed with neurology and they were in agreement with discharge home , but states that Keppra level needs to be followed. Her Keppra dosing was 1000 mg twice daily, prior she was on 500 morning and thousand at night. She is aware that she cannot drive for 6 months following seizures. She believes that her seizures were induced by her cabergoline. She would like to stay off this medication until she can be seen by her outpatient neurologist Dr. Hill, She has an appointment on January 18. Her prolactin level was 25.7 so hold this treatment for now seems reasonable. I have asked her to try to move her appointment with Dr. Hill sooner. She will continue to stay with her parents for monitoring. For physical exam please see progress note same date. A total of 40 minutes of time were spent preparing this complex discharge summary . Pertinent Studies: Head CT-negative EEG- normal for patients age Patient Condition at Discharge: Fair Plan - Discharge Summary Discharge Rx Participant: Yes New Discharge Prescriptions: Continue Furosemide [Lasix] 20 mg PO DAILY PRN PRN Reason: Edema Cetirizine HCl [Zyrtec] 10 mg PO DAILY Albuterol Inhaler [Ventolin Hfa Inhaler] 2 puff INHALATION RT-Q6H PRN PRN Reason: Shortness Of Breath Acetaminophen [Tylenol Extra Strength] 500 mg PO BID PRN PRN Reason: Pain metFORMIN HCL [Glucophage] 500 mg PO TID diphenhydrAMINE HCL [Benadryl] 25 mg PO HS PRN PRN Reason: Allergy Symptoms Diazepam 10 mg PO QID Metoclopramide HCl [Reglan] 10 mg PO QID PRN PRN Reason: Nausea Melatonin 3 mg PO HS PRN PRN Reason: Insomnia Loperamide HCl [Loperamide] 2 mg PO DAILY PRN PRN Reason: Diarrhea Fluticasone Nasal [place] [Flonase Nasal [place]] 1 spray EA NOSTRIL DAILY QUEtiapine FUMARATE 100 - 200 mg PO HS levETIRAcetam [Keppra] 1,000 mg PO BID #60 tablet Discontinued Cabergoline 0.5mg 0.5 mg PO Q72H Discharge Medication List Acetaminophen [Tylenol Extra Strength] 500 mg PO BID PRN 12/27/17 [History] Albuterol Inhaler [Ventolin Hfa Inhaler] 2 puff INHALATION RT-Q6H PRN 12/27/17 [ History] Cetirizine HCl [Zyrtec] 10 mg PO DAILY 12/27/17 [History] Diazepam 10 mg PO QID 12/27/17 [History] Fluticasone Nasal [place] [Flonase Nasal [place]] 1 spray EA NOSTRIL DAILY 12/27/17 [History] Furosemide [Lasix] 20 mg PO DAILY PRN 12/27/17 [History] Loperamide HCl [Loperamide] 2 mg PO DAILY PRN 12/27/17 [History] Melatonin 3 mg PO HS PRN 12/27/17 [History] Metoclopramide HCl [Reglan] 10 mg PO QID PRN 12/27/17 [History] QUEtiapine FUMARATE 100 - 200 mg PO HS 12/27/17 [History] diphenhydrAMINE HCL [Benadryl] 25 mg PO HS PRN 12/27/17 [History] metFORMIN HCL [Glucophage] 500 mg PO TID 12/27/17 [History] levETIRAcetam [Keppra] 1,000 mg PO BID #60 tablet 12/29/17 [Rx] Follow up Appointment(s)/Referral(s): [facility], [NON-STAFF] - As Needed Activity/Diet/Wound Care/Special Instructions: No driving until 6 months seizure free Regular diet Activity as tolerated Discharge Disposition: HOME WITH HOME HEALTH SERVICES Pending Studies Pending Results: nils sanchez
[2017-12-29 15:55] VITALS: BP 95/62; PULSE 75; RESP 16; TEMP 97.9
== END 2017-12-29 18:15 | disposition home health service (06) ==
LOC: EC 17:30 → INTOOBSV 21:36 → 5MS5E 21:36 → UNDODISIN 12-29 18:15
PROVIDERS: ADMIT Internal Medicine; ATTEND Internal Medicine
DX: G40.201 Localization-related (focal) (partial) symptomatic epilepsy and epileptic syndromes with complex partial seizures, not intractable, with status epilepticus (principal); E22.1 Hyperprolactinemia; D35.2 Benign neoplasm of pituitary gland; E27.9 Disorder of adrenal gland, unspecified; F17.200 Nicotine dependence, unspecified, uncomplicated; F31.9 Bipolar disorder, unspecified; J45.909 Unspecified asthma, uncomplicated; R51 Headache; Z79.84 Long term (current) use of oral hypoglycemic drugs; Z79.899 Other long term (current) drug therapy; Z88.1 Allergy status to other antibiotic agents; Z91.030 Bee allergy status; Z91.040 Latex allergy status; Z79.51 Long term (current) use of inhaled steroids; Z91.048 Other nonmedicinal substance allergy status; Z82.0 Family history of epilepsy and other diseases of the nervous system; Z82.49 Family history of ischemic heart disease and other diseases of the circulatory system; Z83.3 Family history of diabetes mellitus
CPT/HCPCS: 96376 ×2; 96361 ×3; 96372 ×2; 96375 ×4; 96365; 99285; 36415; 95816; 93005; 80053 ×2; 80177; 82550; 85025 ×2; 81003; 84146; 80306; 73560; 70450; G0378 ×3; J2060; J2765 ×2; J2920; J1650 ×2; J1885 ×2; J1953; C9113